=== PATIENT | male | born 2000 | race Two or more races ===

== ENCOUNTER 2025-06-11 04:16 | Emergency (ER) | payer MEDICAID, SELFPAY ==
[2025-06-11 04:18] VITALS: BMI 32.5
[2025-06-11 04:23] VITALS: BP 158/119; BP 160/111; PULSE 84; RESP 19; TEMP 36.6; O2SAT 97
--- NOTE | 2025-06-11 04:51 | EDNOTE_ITS ---
ED Dental RME/HPI General Chief complaint: Dental/Oral/Throat Stated complaint: DENTAL PAIN Time Seen by Provider: 06/11/25 04:49 Arrival date/time: 06/11/25 04:16 24M with history of asthma presents to ED with several days of R lower dental pain. Patient does not go to dentist often, but will now. Limitations: no limitations Related Data Previous Rx's ?Medication ?Instructions ?Recorded albuterol sulfate 2.5 mg/0.5 mL 5 mg inhalation Q6H LA N shortness 03/10/22 solution for nebulization of breath or wheezing #30 ea albuterol sulfate 90 mcg/actuation 2 puff inhalation Q ID PRN 03/10/22 aerosol inhaler (ProAir HFA) shortness of breath or wh eezing #8.5 grams albuterol sulfate 2.5 mg/0.5 mL 5 mg inhalation Q4H #3 0 ea 09/28/22 solution for nebulization albuterol sulfate 90 mcg/actuation 2 puff inhalation Q ID PRN 09/28/22 aerosol inhaler shortness of breath or wheez ing #8.5 grams prednisone 20 mg tablet See Taper PO QDAY #20 tabs 0 09/28/22 pantoprazole 40 mg tablet,delayed 40 mg PO QDAY #14 ta bs 03/19/23 release (Protonix) promethazine 25 mg tablet 25 mg PO Q6H PRN nausea and 03/20/23 vomiting #20 tabs albuterol sulfate 90 mcg/actuation 2 puff inhalation Q 6H PRN 02/13/24 aerosol inhaler (Ventolin HFA) shortness of breath or wheezing #8.5 grams fluticasone propionate 115 2 puff inhalation BID #12 g donovan 02/13/24 mcg-salmeterol 21 mcg/actuation HFA inhaler (Advair HFA) amoxicillin 875 mg-potassium 1 tab PO BID 7 days #14 t abs 06/11/25 clavulanate 125 mg tablet Allergies Allergy/AdvReac Type Severity Reaction Status Date / Time No Known Allergies Allergy Verified 06/11/25 04:17 Review of Systems Review of Systems Systems Reviewed: All systems reviewed, normal except as documented ENT Ears, Nose, Mouth, and Throat: Reports as per HPI and Reports dental pain Past Medical History Past Medical History CARDIAC: Negative Cardiac Disorders or Congestive Heart Failure RESPIRATORY: Positive Asthma; Negative Chronic Obstructive Pulmonary Disease (COPD) GENITOURINARY: Negative Renal Disease ENDOCRINE: Negative Diabetes Mellitus Type 1 or Diabetes Mellitus Type 2 HEMATOLOGIC: Negative Sickle Cell Disease Social History SMOKING STATUS: Current every day smoker ED Exam General Limitations: Present no limitations General appearance: Present alert and in no apparent distress Head Head exam: Present atraumatic ENT ENT exam: Present mucous membranes moist Expanded ENT Exam Teeth exam: Present dental tenderness # (31-32) and gingival swelling Neck Neck exam: Present normal inspection, full ROM and trachea midline Chest Chest inspection: Present normal inspection and symmetric chest wall rise Extremities Exam Extremities exam: Present normal inspection and full ROM Neurological Exam Neurological exam: Present alert and oriented X3 Psychiatric Psychiatric exam: Present normal affect and normal mood Skin Skin exam: Present warm, dry, intact and normal color Course Quality Measures none Orders Category Date Time Status Amoxicillin/Pot Clav 875 [Augmentin 875] Med 06/11/25 04:49 Once 1 tab PO X1 ONE Naproxen [Naprosyn] Med 06/11/25 04:49 Once 500 mg PO X1 ONE Vital Signs Vital signs: Vital Signs Temperature 97.8 F 06/11/25 04:23 Pulse Rate 84 06/11/25 04:23 Respiratory Rate 19 06/11/25 04:23 Blood Pressure 160/111 H 06/11/25 04:23 Pulse Oximetry (%) 97 06/11/25 04:23 Oxygen Delivery Method Room Air 06/11/25 04:23 O2 at 97% on RA and WNLs Dental / Oral MDM Narrative MDM Narrative:: 24M with history of asthma presents to ED with several days of R lower dental pain. Patient does not go to dentist often, but will now. Physical exam reveals R lower dental tenderness and some gingival swelling. Patient is afebrile, calm, and alert. Meds and adoption counselor given. Patient data External records reviewed:: [facility] previous records Clinical information provided by:: patient Social determinants that could affect healthcare access:: none Patient has the following chronic illnesses:: asthma How is presenting disease/condition affected by chronic disease/condition?: exacerbated by Evaluation data The following diagnostics were reviewed and interpreted by me:: other (specify) (none) Lab and/or radiology exams considered but not ordered:: not ordered Interpretation Summary: n/a Medications / Prescriptions Medications or Prescriptions considered but not ordered:: ordered Medication administrations:: Medication Administration History Amoxicillin/Clavulanate Potassium (Amoxicillin/Pot Clav 875 Tablet) 1 tab PO X1 ONE Stop: 06/11/25 04:50 Naproxen (Naproxen 250 Mg Tablet) 500 mg PO X1 ONE Stop: 06/11/25 04:50 above Consultations Consultation(s) initiated? (list below): No Diagnosis Dental Differential Diagnosis: gingival abscess, dental caries, toothache, dental abscess, fracture of tooth and aphthous ulcer Most likely diagnosis given after review of the tests above:: dental abscess Admission Indicated Admission indicated?: not indicated Admission Request Was there a request for admission?: No Disposition Plan Disposition Plan: Discharge Discharge Attestation Discharge Attestation: The patient and all family members were given an opportunity to ask questions and understood the discharge instructions. Discharge instructions specifically effects, indications for sooner follow up or return to the emergency department, and the expected course of current diagnosis. Patient condition: Stable Discharge Plan Plan Patient Disposition: HOME (Self Care) Discharge Disposition comment: Stable Prescriptions/Referrals Prescriptions/Med Rec: New amoxicillin-pot clavulanate 875-125 mg tablet 1 tab PO BID 7 Days Qty: 14 0RF No Action albuterol sulfate 2.5 mg/0.5 mL solution for nebulization 5 mg inhalation Q6H PRN (Reason: shortness of breath or wheezing) Qty: 30 0RF albuterol sulfate [ProAir HFA] 90 mcg/actuation HFA aerosol inhaler 2 puff inhalation QID PRN (Reason: shortness of breath or wheezing) Qty: 8.5 0RF albuterol sulfate 2.5 mg/0.5 mL solution for nebulization 5 mg inhalation Q4H Qty: 30 0RF albuterol sulfate 90 mcg/actuation HFA aerosol inhaler 2 puff inhalation QID PRN (Reason: shortness of breath or wheezing) Qty: 8.5 0RF prednisone 20 mg tablet See Taper PO QDAY Qty: 20 0RF Taper: Prednisone Taper 20 mg DAILY for 2 Days and 0 Hour 10 mg DAILY for 2 Days and 0 Hour 5 mg DAILY for 7 Days and 0 Hour Rx Instructions: follow taper promethazine 25 mg tablet 25 mg PO Q6H PRN (Reason: nausea and vomiting) Qty: 20 0RF fluticasone propion-salmeterol [Advair HFA] 115-21 mcg/actuation HFA aerosol inhaler 2 puff inhalation BID Qty: 12 0RF Rx Instructions: administer with spacer albuterol sulfate [Ventolin HFA] 90 mcg/actuation HFA aerosol inhaler 2 puff inhalation Q6H PRN (Reason: shortness of breath or wheezing) Qty: 8.5 3RF pantoprazole [Protonix] 40 mg tablet,delayed release (DR/EC) 40 mg PO QDAY Qty: 14 0RF Problem List Clinical Impression: Dental abscess Patient/Caregiver Discharge Instructions Education Materials: ED Dental Abscess Additional Instructions: Please follow-up with PCP within 24-48 hours and return immediately if symptoms worsen. See dentist soon. Print Language: [place]ian Stand Alone Forms: Patient Portal Info Letter PA/CINETECHNICIAN Supervising Physician PA/CINETECHNICIAN Supervising Physician: Dr. Michele
[2025-06-11] MEDS: NAPROXEN 250 MG TABLET 500 MG PO (05:08)
[2025-06-11] MEDS: AMOXICILLIN/POT CLAV 875 TABLET 1 TAB PO (05:08)
[2025-06-11 05:30] VITALS: RESP 16
== END 2025-06-11 05:31 | disposition home or self-care (01) ==
LOC: SERX 04:56
PROVIDERS: Emergency Provider Emergency Medicine; PCP Family Medicine
DX: K04.7 Periapical abscess without sinus (principal); J45.909 Unspecified asthma, uncomplicated; F17.210 Nicotine dependence, cigarettes, uncomplicated
CPT/HCPCS: 99283; A9270